=== PATIENT | female | born 2005 | race Hispanic/Latino ===

== ENCOUNTER 2024-12-13 17:55 | Emergency (ER) | payer OTHER ==
[2024-12-13 18:56] LABS: #Basophils 0.03 10x3/uL (0.0-0.2); #Eosinophils Less than 0.03 10x3/uL (0.0-0.5); #Monocytes 0.47 10x3/uL (0.0-1.1); #Neutrophils 8.99 10x3/uL (1.5-8.4); %Basophils 0.3 % (0.0-2.0); %Eosinophils 0.1 % (0.0-6.0); %Lymphocytes 8.5 % (18.0-47.0); %Monocytes 4.5 % (0.0-10.0); %Neutrophils 86.3 % (40.0-75.0); Hematocrit 42.2 % (34.9-44.5); Hemoglobin 15.0 g/dL (12.0-15.5); Mean Corpuscular Hemoglobin 30.2 pg (27.0-33.0); Mean Corpuscular Volume 85.1 fL (81.6-98.3); Platelet Count 405 10x3/uL (150-450); Red Blood Cell (RBC) Count 4.96 10x6/uL (3.90-5.03); White Blood Cell (WBC) Count 10.41 10x3/uL (3.5-10.5)
[2024-12-13 19:06] LABS: ALT (SGPT) 14 U/L (Less than 34); AST (SGOT) 22 U/L (11-34); Albumin 4.6 g/dL (3.1-4.5); Alkaline Phosphatase 52 U/L (40-110); Anion Gap 15 mmol/L (10-20); BUN (Urea Nitrogen) 10 mg/dL (7.0-18.7); Bilirubin, Total 0.3 mg/dL (0.3-1.2); Calc. Creatinine Clearance 0 mL/min (70-130); Calcium 9.5 mg/dL (7.8-10.44); Carbon Dioxide 19 mmol/L (22-29); Chloride 109 mmol/L (98-107); Globulin 4.4 g/dL (2.4-3.5); Glucose 90 mg/dL (70-105); Potassium 4.3 mmol/L (3.5-5.1); Sodium 139 mmol/L (136-145)
[2024-12-13 19:17] LABS: BHCG - Serum Negative (NEGATIVE); Pregs Control Bar Appear? YES (CONTROL BAR)
[2024-12-13 19:18] LABS: Pregs Control Background? CLEAR/WHITE (CLR/WHITE)
[2024-12-13 19:59] LABS: Glucose, Urine (Dipstick) Normal (Negative); Leukocyte Negative (Negative); Protein, Urine (Dipstick) 15 mg/dl (Neg-Trace); Specific Gravity, Urine 1.025 (1.005-1.030)
[2024-12-13 21:18] LABS: Bacteria/HPF 2+ HPF (None Seen); CAUTI Indications for Culture Dysuria,urgency,freq; Mucous/LPF 2+ LPF (<2+); WBC/HPF 0-3 HPF (0-3)
[2024-12-13 21:20] LABS: Urine Culture Reflex No No
[2024-12-13] MEDS ORDERED: Ketorolac Tromethamine 30 MG (1 mL) VIAL ONE (22:16)
[2024-12-13] MEDS ORDERED: Ondansetron PF 4 MG/2 ML Vial ONE (22:16)
== END 2024-12-13 23:57 | disposition home or self-care (01) ==
LOC: CSHERS 17:55
DX: R11.2 Nausea with vomiting, unspecified (principal); F17.290 Nicotine dependence, other tobacco product, uncomplicated
CPT/HCPCS: 36415; 80053; 81001; 83690; 84703; 85025; 87428; 96361; 96374; 96375; J1885; J2405; Q0162

== ENCOUNTER 2025-01-17 10:54 | Emergency (ER) | payer OTHER ==
[2025-01-17] MEDS ORDERED: Ketorolac Tromethamine 30 MG (1 mL) VIAL ONE (12:04)
== END 2025-01-17 12:55 | disposition home or self-care (01) ==
LOC: CSHERS 10:54
DX: J20.9 Acute bronchitis, unspecified (principal)
CPT/HCPCS: 71045; 87081; 87428; 87430; 96372; J1885